=== PATIENT | female | born 1965 | race Hispanic/Latino ===

== ENCOUNTER 2023-08-14 17:25 | Inpatient (IN) | payer BC ==
[2023-08-14] MEDS ORDERED: fentaNYL 50 mcg/mL 1 mL Vial ONE (18:10)
[2023-08-14 19:24] LABS: Hemoglobin 10.3 g/dL (12.0-16.0); Mean Corpuscular HGB CONC 30.3 g/dL (32.0-36.0); Mean Corpuscular Hemoglobin 29.4 pg (27.0-31.0); Mean Corpuscular Volume 97.1 fL (78.0-98.0); Mean Platelet Volume 10.9 fL (7.4-10.4); Platelet Count 120 10x3/uL (130-400)
[2023-08-14 19:26] LABS: INR-International Normal Ratio 1.5; PTT 34.2 sec (22.9-36.1); Prothrombin Time 18.3 sec (12.0-14.7)
[2023-08-14 19:37] LABS: Band 12 % (5-11); Burr Cells SLIGHT = 2-5 cells HPF (0-1); Hypochromia SLIGHT = 6-15 cells HPF (0-5); Large Platelets 8.7 % (0-5); Lymphocytes 22 % (21-51); Macrocytosis SLIGHT = 6-15 cells HPF (0-5); Metamyelocyte 1 % (0-0); Monocytes 18 % (0-10); Myelocyte 2 % (0-0); Neutrophil 45 % (42-75); Nucleated RBC (Manual Ct) 2 % (0); Platelet Adequacy Comment Platelets Decreased; Poikilocytosis SLIGHT = 6-15 cells HPF (0-5); Polychromasia SLIGHT = 2-3 cells HPF (0-2)
[2023-08-14 19:50] LABS: Critical Call Chem Troponin I NUR.RO @1949; Troponin I 0.285 ng/mL (< 0.028)
[2023-08-14] MEDS ORDERED: Acetaminophen 500 MG TAB ONE (19:58)
[2023-08-14 19:59] LABS: ALT (SGPT) 21 U/L (8-55); AST (SGOT) 42 U/L (5-34); Albumin 2.5 g/dL (3.5-5.0); Alkaline Phosphatase 151 U/L (40-110); Anion Gap 25 mmol/L (10-20); BUN (Urea Nitrogen) 47 mg/dL (9.8-20.1); Bilirubin, Total 0.3 mg/dL (0.2-1.2); Calc. Creatinine Clearance 0 mL/min (70-130); Calcium 8.1 mg/dL (7.8-10.44); Carbon Dioxide 12 mmol/L (22-29); Chloride 107 mmol/L (98-107); Estimated GFR 11; Glucose 254 mg/dL (70-105); Potassium 4.5 mmol/L (3.5-5.1); Protein, Total 6.5 g/dL (6.0-8.3); Sodium 139 mmol/L (136-145)
[2023-08-14] MEDS ORDERED: Ondansetron ODT 4 MG TAB PO PRN (20:16)
[2023-08-14] MEDS ORDERED: Dextrose 50% Abboject 50 ML SYRINGE SLOW IVP PRN (20:16)
[2023-08-14] MEDS ORDERED: Glucagon 1 MG/ML KIT IM PRN (20:16)
[2023-08-14] MEDS ORDERED: Dextrose 5% in Water 1,000 ML IV PRN (20:16)
[2023-08-14] MEDS: NOREPINEPHRINE 8 MG/250 ML-D5W 250 ML IVPB PRN (22:04)
[2023-08-14] MEDS: Sodium Bicarbonate 150 mEq in Dextrose 5% IV SCH (22:16)
[2023-08-14] MEDS: Heparin 5,000 UNITS/ML VIAL SC SCH (22:19)
[2023-08-14] MEDS: Hydrocortisone Sod Succ/PF 100 mg/2 ml Vial IVP SCH (22:49)
[2023-08-14] MEDS: Sodium Bicarb 50 MEQ/50 ML Abboject 8.4% SYRINGE IVP SCH (22:49)
[2023-08-14] MEDS: Albumin 25% 25 GM (100 mL) BOT IVPB SCH (22:59)
[2023-08-14 23:06] VITALS: BMI 32.9
[2023-08-15 00:57] LABS: Troponin I 0.852 ng/mL (< 0.028)
[2023-08-15] MEDS: Hydrocortisone Sod Succ/PF 100 mg/2 ml Vial IVP SCH (01:08)
[2023-08-15] MEDS: Vasopressin 20 UNITS in Sodium Chloride 0.9% 50 ML IV SCH (01:09)
[2023-08-15] MEDS: Electrolyte Replacement Protocol 1 EACH IVPB ONE (01:12)
[2023-08-15] MEDS: fentaNYL 50 mcg/mL 1 mL Vial SLOW IVP SCH ×2 (02:00→08:20)
[2023-08-15] MEDS: Meropenem 1 GM in Sodium Chloride 0.9% 100 ML IVPB SCH (02:09)
[2023-08-15] MEDS: HumaLOG 300 UNITS/3 ML VIAL SC PRN (02:29)
[2023-08-15 03:29] LABS: Critical Call Chem Troponin I ICU.UKA@0329
[2023-08-15] MEDS ORDERED: Dextrose 5% in Water 1,000 ML IV PRN (04:30)
[2023-08-15] MEDS ORDERED: Glucagon 1 MG/ML KIT IM PRN (04:30)
[2023-08-15] MEDS: Insulin Glargine 30 UNITS/0.3 ML VIAL SC SCH (04:35)
[2023-08-15 04:36] LABS: Hematocrit 30.7 % (36.0-47.0); Hemoglobin 9.6 g/dL (12.0-16.0); Mean Corpuscular HGB CONC 31.3 g/dL (32.0-36.0); Mean Corpuscular Hemoglobin 29.8 pg (27.0-31.0); Mean Corpuscular Volume 95.3 fL (78.0-98.0); Platelet Count 88 10x3/uL (130-400); RBC Distribution Width 17.2 % (11.5-14.5); Red Blood Cell (RBC) Count 3.22 mill/uL (4.20-5.40)
[2023-08-15 05:01] LABS: Band 21 % (5-11); Large Platelets 1.8 % (0-5); Metamyelocyte 4 % (0-0); Monocytes 6 % (0-10); Neutrophil 69 % (42-75); Platelet Adequacy Comment Platelets Decreased; RBC Morphology Within Normal Limits
[2023-08-15 05:11] LABS: ALT (SGPT) 52 U/L (8-55); AST (SGOT) 83 U/L (5-34); Albumin 2.6 g/dL (3.5-5.0); Alkaline Phosphatase 89 U/L (40-110); Anion Gap 27 mmol/L (10-20); BUN (Urea Nitrogen) 50 mg/dL (9.8-20.1); Bilirubin, Total 0.7 mg/dL (0.2-1.2); Calc. Creatinine Clearance 16 mL/min (70-130); Calcium 7.8 mg/dL (7.8-10.44); Carbon Dioxide 17 mmol/L (22-29); Chloride 101 mmol/L (98-107); Estimated GFR 11; Globulin 3.3 g/dL (2.4-3.5); Glucose 415 mg/dL (70-105); Potassium 3.8 mmol/L (3.5-5.1); Protein, Total 5.9 g/dL (6.0-8.3); Sodium 141 mmol/L (136-145)
[2023-08-15] MEDS: Ondansetron PF 4 MG/2 ML Vial IVP PRN (05:49)
[2023-08-15] MEDS ORDERED: Meropenem 1 GM in Sodium Chloride 0.9% 100 ML IVPB SCH (06:00)
[2023-08-15] MEDS: Sodium Bicarb 50 mEq/50 ML VIAL IVP SCH (06:06)
[2023-08-15] MEDS: Sodium Chloride 0.9% 500 ML IV SCH (06:07)
[2023-08-15] MEDS: Sodium Chloride 0.9% 1,000 ML IV SCH (08:19)
[2023-08-15] MEDS: Pantoprazole 40 MG VIAL IVP SCH (08:59)
[2023-08-15] MEDS: Insulin Reg, Human 100 UNITS in Sodium Chloride 0.9% 100 ML IVPB SCH (09:57)
[2023-08-15] MEDS: Meropenem 500 MG in Sodium Chloride 0.9% 100 ML IVPB SCH (09:57)
[2023-08-15] MEDS: Promethazine HCl 6.25 MG in Sodium Chloride 0.9% 50 ML IVPB SCH (12:04)
[2023-08-15 12:47] LABS: Troponin I 9.243 ng/mL (< 0.028)
[2023-08-15 13:04] LABS: Campy jejuni + coli by PCR Negative (Negative); STEC Shiga Toxin 1+2 Negative (Negative); Salmonella spp. by PCR Negative (Negative); Shigella spp + EIEC by PCR Negative (Negative)
[2023-08-15] MEDS: fentaNYL 50 mcg/mL 1 mL Vial SLOW IVP PRN (15:00)
[2023-08-15 15:31] LABS: Troponin I 10.308 ng/mL (< 0.028)
[2023-08-15 16:05] LABS: Potassium 3.6 mmol/L (3.5-5.1)
[2023-08-15] MEDS ORDERED: SUCCINYLCHOLINE/SOD CL,ISO/PF 200 MG/10 ML SYRINGE FS ONE (17:59)
[2023-08-15] MEDS ORDERED: Etomidate 40 MG (20 mL) VIAL ONE (17:59)
[2023-08-15] MEDS: SUCCINYLCHOLINE/SOD CL,ISO/PF 200 MG/10 ML SYRINGE FS SCH (18:00)
[2023-08-15] MEDS: Propofol 1,000 MG/100 ML VIAL IV PRN (18:00)
[2023-08-15] MEDS ORDERED: Ventilator Sedation Protocol 1 EACH FS SCH (18:15)
[2023-08-15] MEDS: Fentanyl CADD 100 ML IV SCH (18:30)
[2023-08-15] MEDS ORDERED: Propofol BOLUS 1,000 MG/100 ML VIAL IV PRN (18:30)
[2023-08-15] MEDS ORDERED: DISCONTINUE PREVIOUS NARCOTIC PAIN MEDICATIONS AND BENZODIAZEPINES FS SCH (18:30)
[2023-08-15] MEDS ORDERED: Morphine 2 MG/ML VIAL SLOW IVP PRN (18:30)
[2023-08-15] MEDS ORDERED: Fentanyl BOLUS 250 ML IVPB PRN (18:30)
[2023-08-15 18:49] LABS: Actual Bicarbonate (HCO3a) 20.8 mEq/L (22-28); Base Excess (BEa) -1.4 mEq/L (-2.0 to +3.0); CO2 Tension 26.1 mmHg (35.0-45.0); Calcium, Ionized (arterial) 0.81 mmol/L (1.12-1.30); Carboxyhemoglobin (COHb) 0.4 gm% (0.0-3.0); Hematocrit-ABG 26 % (36.0-47.0); Hemoglobin (Hb) 8.7 g/dL (12.0-16.0); O2 Tension (PaO2), arterial 76.4 mmHg (80.0-100.0); Potassium - ABG Lab 4.07 mmol/L (3.70-5.30); pH, Arterial 7.519 (7.35-7.45)
[2023-08-15 18:49] LABS: Troponin I 10.467 ng/mL (< 0.028)
[2023-08-15 18:51] LABS: ALV-art Gradient 176.175 mmHg (0-20); Puncture Site Arterial Line
[2023-08-15] MEDS: Etomidate 40 MG (20 mL) VIAL IVP SCH (19:12)
[2023-08-15] MEDS: Propofol 1,000 MG/100 ML VIAL IV ONE (19:14)
[2023-08-15] MEDS: Fentanyl CADD 100 ML ONE (19:14)
[2023-08-15 19:20] LABS: Lactic Acid 8.6 mmol/L (0.5-2.2)
[2023-08-15] MEDS ORDERED: cefTRIAXone\\ROCEPHIN 2 GM in Sodium Chloride 0.9% 100 ML IVPB SCH (21:00)
[2023-08-15 22:24] LABS: Critical Call Chem Troponin I RESULT DECREASING; Troponin I 10.462 ng/mL (< 0.028)
[2023-08-15 23:42] LABS: ALT (SGPT) 456 U/L (8-55); AST (SGOT) 632 U/L (5-34); Albumin 3.2 g/dL (3.5-5.0); Alkaline Phosphatase 70 U/L (40-110); Anion Gap 32 mmol/L (10-20); BUN (Urea Nitrogen) 58 mg/dL (9.8-20.1); Bilirubin, Total 1.7 mg/dL (0.2-1.2); Calc. Creatinine Clearance 17 mL/min (70-130); Calcium 7.4 mg/dL (7.8-10.44); Carbon Dioxide 13 mmol/L (22-29); Chloride 105 mmol/L (98-107); Estimated GFR 11; Globulin 2.7 g/dL (2.4-3.5); Glucose 103 mg/dL (70-105); Potassium 4.4 mmol/L (3.5-5.1); Protein, Total 5.9 g/dL (6.0-8.3); Sodium 146 mmol/L (136-145)
[2023-08-16 00:42] LABS: Hematocrit 26.5 % (36.0-47.0); Hemoglobin 8.5 g/dL (12.0-16.0); Mean Corpuscular HGB CONC 32.1 g/dL (32.0-36.0); Mean Corpuscular Hemoglobin 30.5 pg (27.0-31.0); Mean Platelet Volume 11.3 fL (7.4-10.4); Platelet Count 39 10x3/uL (130-400); RBC Distribution Width 17.8 % (11.5-14.5); Red Blood Cell (RBC) Count 2.79 mill/uL (4.20-5.40)
[2023-08-16] MEDS: Sodium Bicarb 50 mEq/50 ML VIAL IVP SCH (00:52)
[2023-08-16] MEDS: Calcium Chloride 13.6 MEQ in Sodium Chloride 0.9% 100 ML IVPB SCH (00:52)
[2023-08-16] MEDS: Sodium Bicarbonate 150 MEQ in Dextrose 5% in Water 1,000 ML IV SCH (00:53)
[2023-08-16 01:03] LABS: Band 14 % (5-11); Burr Cells SLIGHT = 2-5 cells HPF (0-1); Lymphocytes 4 % (21-51); Monocytes 3 % (0-10); Neutrophil 79 % (42-75); Nucleated RBC (Manual Ct) 1 % (0); Platelet Adequacy Comment Platelets Decreased; Smudge Cells 66.3 %
[2023-08-16 04:16] LABS: Hematocrit 26.1 % (36.0-47.0); Hemoglobin 8.7 g/dL (12.0-16.0); Mean Corpuscular HGB CONC 33.3 g/dL (32.0-36.0); Mean Corpuscular Volume 92.9 fL (78.0-98.0); Platelet Count 33 10x3/uL (130-400); RBC Distribution Width 17.5 % (11.5-14.5); Red Blood Cell (RBC) Count 2.81 mill/uL (4.20-5.40)
[2023-08-16 04:34] LABS: Lactic Acid 12.1 mmol/L (0.5-2.2)
[2023-08-16 05:18] LABS: Band 14 % (5-11); Burr Cells MODERATE= 6-15 cells HPF (0-1); Large Platelets 1.9 % (0-5); Lymphocytes 5 % (21-51); Metamyelocyte 1 % (0-0); Neutrophil 80 % (42-75); Nucleated RBC (Manual Ct) 2 % (0); Platelet Adequacy Comment Platelets Decreased; Smudge Cells 107.6 %
[2023-08-16 06:06] LABS: ALT (SGPT) 1038 U/L (8-55); AST (SGOT) 1917 U/L (5-34); Alkaline Phosphatase 89 U/L (40-110); Anion Gap 32 mmol/L (10-20); BUN (Urea Nitrogen) 60 mg/dL (9.8-20.1); Bilirubin, Total 1.9 mg/dL (0.2-1.2); Calc. Creatinine Clearance 17 mL/min (70-130); Carbon Dioxide 17 mmol/L (22-29); Chloride 102 mmol/L (98-107); Estimated GFR 11; Globulin 2.6 g/dL (2.4-3.5); Glucose 171 mg/dL (70-105); Protein, Total 5.6 g/dL (6.0-8.3); Sodium 147 mmol/L (136-145)
[2023-08-16 07:19] LABS: Actual Bicarbonate (HCO3a) 20.3 mEq/L (22-28); Base Excess (BEa) -1.7 mEq/L (-2.0 to +3.0); CO2 Tension 25.3 mmHg (35.0-45.0); Calcium, Ionized (arterial) 0.87 mmol/L (1.12-1.30); Carboxyhemoglobin (COHb) 0.3 gm% (0.0-3.0); Hematocrit-ABG 27 % (36.0-47.0); Hemoglobin (Hb) 9.2 g/dL (12.0-16.0); O2 Tension (PaO2), arterial 84.2 mmHg (80.0-100.0); Potassium - ABG Lab 4.99 mmol/L (3.70-5.30); pH, Arterial 7.522 (7.35-7.45)
[2023-08-16 07:59] LABS: ALV-art Gradient 169.375 mmHg (0-20); Puncture Site Arterial Line
[2023-08-16] MEDS: Sodium Bicarbonate 100 MEQ in Dextrose 5% in Water 1,000 ML IV SCH (08:58)
[2023-08-16 09:32] LABS: Prothrombin Time 23.1 sec (12.0-14.7)
[2023-08-16 09:42] LABS: D-Dimer Test 8.42 mcg/mL (0.27-0.43)
[2023-08-16] MEDS: HumaLOG 300 UNITS/3 ML VIAL SC PRN (20:38)
[2023-08-16 20:56] LABS: Anion Gap 25 mmol/L (10-20); BUN (Urea Nitrogen) 68 mg/dL (9.8-20.1); Calc. Creatinine Clearance 17 mL/min (70-130); Calcium 7.4 mg/dL (7.8-10.44); Carbon Dioxide 27 mmol/L (22-29); Chloride 98 mmol/L (98-107); Estimated GFR 11; Glucose 297 mg/dL (70-105); Potassium 3.7 mmol/L (3.5-5.1); Sodium 146 mmol/L (136-145)
[2023-08-17 06:20] LABS: Platelet Count 27 10x3/uL (130-400)
[2023-08-17 06:21] LABS: Hematocrit 28.6 % (36.0-47.0); Hemoglobin 9.3 g/dL (12.0-16.0); Mean Corpuscular HGB CONC 32.5 g/dL (32.0-36.0); Mean Corpuscular Hemoglobin 30.4 pg (27.0-31.0); Mean Corpuscular Volume 93.5 fL (78.0-98.0); Mean Platelet Volume 13.7 fL (7.4-10.4); Platelet Count 29 10x3/uL (130-400); RBC Distribution Width 17.2 % (11.5-14.5); Red Blood Cell (RBC) Count 3.06 mill/uL (4.20-5.40)
[2023-08-17 06:39] LABS: INR-International Normal Ratio 1.5; Prothrombin Time 18.5 sec (12.0-14.7)
[2023-08-17 06:40] LABS: Fibrinogen 680 mg/dL (253-463); Lactic Acid 3.8 mmol/L (0.5-2.2); PTT 29.7 sec (22.9-36.1)
[2023-08-17 06:50] LABS: D-Dimer Test 7.12 mcg/mL (0.27-0.43)
[2023-08-17 06:59] LABS: ALT (SGPT) 858 U/L (8-55); AST (SGOT) 594 U/L (5-34); Albumin 2.4 g/dL (3.5-5.0); Alkaline Phosphatase 158 U/L (40-110); Anion Gap 21 mmol/L (10-20); BUN (Urea Nitrogen) 75 mg/dL (9.8-20.1); Calc. Creatinine Clearance 18 mL/min (70-130); Calcium 7.2 mg/dL (7.8-10.44); Carbon Dioxide 28 mmol/L (22-29); Chloride 99 mmol/L (98-107); Estimated GFR 12; Glucose 376 mg/dL (70-105); Potassium 3.3 mmol/L (3.5-5.1); Protein, Total 5.4 g/dL (6.0-8.3); Sodium 145 mmol/L (136-145)
[2023-08-17 07:02] LABS: Critical Call Chem Troponin I down@0700
[2023-08-17 07:16] LABS: Actual Bicarbonate (HCO3a) 28.1 mEq/L (22-28); Base Excess (BEa) 5.6 mEq/L (-2.0 to +3.0); CO2 Tension 33.2 mmHg (35.0-45.0); Calcium, Ionized (arterial) 0.88 mmol/L (1.12-1.30); Carboxyhemoglobin (COHb) 0.2 gm% (0.0-3.0); Hematocrit-ABG 29 % (36.0-47.0); O2 Tension (PaO2), arterial 67.9 mmHg (80.0-100.0); Potassium - ABG Lab 3.22 mmol/L (3.70-5.30); pH, Arterial 7.546 (7.35-7.45)
[2023-08-17 07:31] LABS: Puncture Site Arterial Line
[2023-08-17 07:49] LABS: Anisocytosis MARKED = >30 cells HPF (0-5); Band 10 % (5-11); Burr Cells MODERATE= 6-15 cells HPF (0-1); Large Platelets 0.9 % (0-5); Lymphocytes 2 % (21-51); Macrocytosis MODERATE=16-30 cells HPF (0-5); Metamyelocyte 2 % (0-0); Monocytes 7 % (0-10); Neutrophil 78 % (42-75); Nucleated RBC (Manual Ct) 2 % (0); Ovalocytes SLIGHT = 2-5 cells HPF (0-1); Platelet Adequacy Comment Significant Decrease; Polychromasia SLIGHT = 2-3 cells HPF (0-2); Target Cells SLIGHT = 2-5 cells HPF (0-1)
[2023-08-17] MEDS ORDERED: Insulin Glargine 30 UNITS/0.3 ML VIAL SC SCH (08:30)
[2023-08-17] MEDS: Sodium Chloride 0.45% 1,000 ML IV SCH ×2 (08:34→19:00)
[2023-08-17] MEDS: Potassium Chloride 20 MEQ in Premix 1 BAG IVPB SCH (08:34)
[2023-08-17] MEDS: Insulin NPH Human Isophane 100 UNITS/ML (10 ML VIAL) SC SCH ×2 (08:35→21:31)
[2023-08-17] MEDS ORDERED: Lactated Ringer's 1,000 ML IV SCH (09:00)
[2023-08-17 16:11] LABS: Lactic Acid 3.2 mmol/L (0.5-2.2)
[2023-08-17 22:16] LABS: Lactic Acid 2.3 mmol/L (0.5-2.2)
[2023-08-18 04:23] LABS: Hematocrit 31.2 % (36.0-47.0); Hemoglobin 10.1 g/dL (12.0-16.0); Mean Corpuscular HGB CONC 32.4 g/dL (32.0-36.0); Mean Corpuscular Hemoglobin 30.1 pg (27.0-31.0); Mean Corpuscular Volume 93.1 fL (78.0-98.0); Platelet Count 24 10x3/uL (130-400); Red Blood Cell (RBC) Count 3.35 mill/uL (4.20-5.40)
[2023-08-18 04:25] LABS: Lactic Acid 2.2 mmol/L (0.5-2.2)
[2023-08-18 04:29] LABS: ALT (SGPT) 696 U/L (8-55); AST (SGOT) 330 U/L (5-34); Albumin 2.2 g/dL (3.5-5.0); Alkaline Phosphatase 196 U/L (40-110); Anion Gap 20 mmol/L (10-20); BUN (Urea Nitrogen) 87 mg/dL (9.8-20.1); Bilirubin, Total 1.6 mg/dL (0.2-1.2); Calc. Creatinine Clearance 21 mL/min (70-130); Calcium 7.4 mg/dL (7.8-10.44); Carbon Dioxide 27 mmol/L (22-29); Chloride 103 mmol/L (98-107); Estimated GFR 14; Globulin 3.2 g/dL (2.4-3.5); Glucose 230 mg/dL (70-105); Potassium 3.4 mmol/L (3.5-5.1); Protein, Total 5.4 g/dL (6.0-8.3); Sodium 147 mmol/L (136-145)
[2023-08-18 05:19] LABS: Band 8 % (5-11); Large Platelets 4.9 % (0-5); Lymphocytes 2 % (21-51); Monocytes 3 % (0-10); Neutrophil 87 % (42-75); Nucleated RBC (Manual Ct) 2 % (0); Platelet Adequacy Comment Significant Decrease; RBC Morphology Within Normal Limits; Smudge Cells 7.8 %
[2023-08-18] MEDS: Insulin NPH Human Isophane 100 UNITS/ML (10 ML VIAL) SC SCH (08:36)
[2023-08-18] MEDS: Lorazepam 2 MG/ML VIAL SLOW IVP PRN (11:07)
[2023-08-18] MEDS: Sodium Chloride 0.45% 1,000 ML IV SCH (12:34)
[2023-08-18 17:10] LABS: Hematocrit 30.4 % (36.0-47.0); Hemoglobin 9.9 g/dL (12.0-16.0); Mean Corpuscular HGB CONC 32.6 g/dL (32.0-36.0); Mean Corpuscular Hemoglobin 29.6 pg (27.0-31.0); Platelet Count 26 10x3/uL (130-400); RBC Distribution Width 16.8 % (11.5-14.5); Red Blood Cell (RBC) Count 3.34 mill/uL (4.20-5.40)
[2023-08-18 17:39] LABS: Anisocytosis SLIGHT = 6-15 cells HPF (0-5); Band 22 % (5-11); Dohle Bodies SLIGHT; Hypochromia SLIGHT = 6-15 cells HPF (0-5); Lymphocytes 3 % (21-51); Monocytes 5 % (0-10); Myelocyte 1 % (0-0); Neutrophil 70 % (42-75); Nucleated RBC (Manual Ct) 3 % (0); Platelet Adequacy Comment Platelets Decreased; Polychromasia SLIGHT = 2-3 cells HPF (0-2); Toxic Granulation SLIGHT; Vacuoles SLIGHT
[2023-08-18] MEDS: Scopolamine 1 mg/72 hour Patch TD SCH (22:03)
[2023-08-19 05:26] LABS: Hemoglobin 10.2 g/dL (12.0-16.0); Mean Corpuscular HGB CONC 32.9 g/dL (32.0-36.0); Mean Corpuscular Hemoglobin 29.7 pg (27.0-31.0); Mean Corpuscular Volume 90.1 fL (78.0-98.0); Platelet Count 30 10x3/uL (130-400); RBC Distribution Width 16.9 % (11.5-14.5); Red Blood Cell (RBC) Count 3.44 mill/uL (4.20-5.40)
[2023-08-19 05:29] LABS: Lactic Acid 1.5 mmol/L (0.5-2.2)
[2023-08-19 06:03] LABS: Band 4 % (5-11); Large Platelets 2.9 % (0-5); Lymphocytes 4 % (21-51); Monocytes 3 % (0-10); Neutrophil 89 % (42-75); Nucleated RBC (Manual Ct) 2 % (0); Platelet Adequacy Comment Significant Decrease; Smudge Cells 8.8 %; Target Cells SLIGHT = 2-5 cells HPF (0-1)
[2023-08-19 06:34] LABS: ALT (SGPT) 528 U/L (8-55); AST (SGOT) 315 U/L (5-34); Albumin 1.9 g/dL (3.5-5.0); Alkaline Phosphatase 177 U/L (40-110); Anion Gap 16 mmol/L (10-20); BUN (Urea Nitrogen) 98 mg/dL (9.8-20.1); Bilirubin, Total 1.4 mg/dL (0.2-1.2); Calc. Creatinine Clearance 25 mL/min (70-130); Calcium 6.8 mg/dL (7.8-10.44); Carbon Dioxide 31 mmol/L (22-29); Chloride 105 mmol/L (98-107); Estimated GFR 17; Globulin 2.7 g/dL (2.4-3.5); Glucose 124 mg/dL (70-105); Potassium 2.8 mmol/L (3.5-5.1); Protein, Total 4.6 g/dL (6.0-8.3); Sodium 149 mmol/L (136-145)
[2023-08-19] MEDS: GLYCOPYRROLATE/PF 0.2 MG/ML VIAL SLOW IVP SCH (06:48)
[2023-08-19] MEDS: Albumin 25% 25 GM (100 mL) BOT IVPB SCH (06:48)
[2023-08-19] MEDS: Potassium Chloride 20 MEQ in Premix 1 BAG IVPB SCH (07:51)
[2023-08-19] MEDS: Potassium Chloride 40 MEQ in Dextrose 5% in Water 1,000 ML IV SCH (08:07)
[2023-08-19] MEDS: methylPREDNISolone Sod Succ 40 MG VIAL IVP SCH (08:47)
[2023-08-19] MEDS: Potassium Chloride 40 MEQ in Premix 1 BAG IVPB SCH (08:59)
[2023-08-19] MEDS ORDERED: cefTRIAXone\\ROCEPHIN 1 GM in Sodium Chloride 0.9% 100 ML IVPB SCH (09:30)
[2023-08-19] MEDS: cefTRIAXone\\ROCEPHIN 2 GM in Sodium Chloride 0.9% 100 ML IVPB SCH (10:21)
[2023-08-19] MEDS: Insulin Regular 300 UNITS/3 ML VIAL SC PRN (12:03)
[2023-08-19] MEDS: Insulin Regular 300 UNITS/3 ML VIAL SC SCH (16:06)
[2023-08-19 17:18] LABS: Anion Gap 14 mmol/L (10-20); BUN (Urea Nitrogen) 103 mg/dL (9.8-20.1); Calc. Creatinine Clearance 26 mL/min (70-130); Calcium 7.2 mg/dL (7.8-10.44); Carbon Dioxide 31 mmol/L (22-29); Chloride 106 mmol/L (98-107); Estimated GFR 17; Glucose 318 mg/dL (70-105); Sodium 147 mmol/L (136-145)
[2023-08-19] MEDS: Lactated Ringer's 1,000 ML IV SCH (18:05)
[2023-08-19] MEDS: Dextrose 5% in Water 1,000 ML IV SCH (18:54)
[2023-08-19] MEDS: Insulin Glargine 30 UNITS/0.3 ML VIAL SC SCH (20:40)
[2023-08-20 04:48] LABS: Lactic Acid 2.2 mmol/L (0.5-2.2)
[2023-08-20 05:02] LABS: Hematocrit 29.3 % (36.0-47.0); Hemoglobin 9.6 g/dL (12.0-16.0); Mean Corpuscular HGB CONC 32.8 g/dL (32.0-36.0); Mean Corpuscular Volume 91.6 fL (78.0-98.0); Platelet Count 30 10x3/uL (130-400); RBC Distribution Width 17.2 % (11.5-14.5)
[2023-08-20 05:03] LABS: ALT (SGPT) 382 U/L (8-55); AST (SGOT) 174 U/L (5-34); Albumin 2.2 g/dL (3.5-5.0); Alkaline Phosphatase 162 U/L (40-110); Anion Gap 14 mmol/L (10-20); BUN (Urea Nitrogen) 101 mg/dL (9.8-20.1); Bilirubin, Total 1.5 mg/dL (0.2-1.2); Calc. Creatinine Clearance 31 mL/min (70-130); Calcium 7.2 mg/dL (7.8-10.44); Carbon Dioxide 27 mmol/L (22-29); Chloride 106 mmol/L (98-107); Estimated GFR 21; Globulin 2.4 g/dL (2.4-3.5); Glucose 285 mg/dL (70-105); Potassium 3.7 mmol/L (3.5-5.1); Protein, Total 4.6 g/dL (6.0-8.3); Sodium 143 mmol/L (136-145)
[2023-08-20 05:37] LABS: Band 6 % (5-11); Lymphocytes 4 % (21-51); Monocytes 1 % (0-10); Neutrophil 89 % (42-75); Platelet Adequacy Comment Significant Decrease; Polychromasia SLIGHT = 2-3 cells HPF (0-2); Schistocytes SLIGHT = 2-5 cells HPF (0-1); Toxic Granulation SLIGHT
[2023-08-20 07:47] LABS: Actual Bicarbonate (HCO3a) 24.2 mEq/L (22-28); Base Excess (BEa) 1.2 mEq/L (-2.0 to +3.0); CO2 Tension 32.9 mmHg (35.0-45.0); Calcium, Ionized (arterial) 1.02 mmol/L (1.12-1.30); Hematocrit-ABG 31 % (36.0-47.0); Hemoglobin (Hb) 10.7 g/dL (12.0-16.0); Potassium - ABG Lab 3.56 mmol/L (3.70-5.30); pH, Arterial 7.485 (7.35-7.45)
[2023-08-20 07:52] LABS: O2 Tension (PaO2), arterial 59.2 mmHg (80.0-100.0)
[2023-08-20 07:53] LABS: ALV-art Gradient 184.875 mmHg (0-20); Puncture Site LRA
[2023-08-20] MEDS: Insulin Glargine 30 UNITS/0.3 ML VIAL SC SCH (11:49)
[2023-08-20 12:13] LABS: Norovirus GI Negative (Negative); Norovirus GII Negative (Negative)
[2023-08-20] MEDS: 1/2 NS w/Potassium 20 mEq 1,000 ML IV SCH (18:50)
[2023-08-20 22:55] LABS: ALT (SGPT) 305 U/L (8-55); AST (SGOT) 100 U/L (5-34); Albumin 2.3 g/dL (3.5-5.0); Alkaline Phosphatase 198 U/L (40-110); Anion Gap 21 mmol/L (10-20); BUN (Urea Nitrogen) 99 mg/dL (9.8-20.1); Bilirubin, Total 1.4 mg/dL (0.2-1.2); Calc. Creatinine Clearance 32 mL/min (70-130); Calcium 7.8 mg/dL (7.8-10.44); Carbon Dioxide 21 mmol/L (22-29); Chloride 109 mmol/L (98-107); Estimated GFR 22; Globulin 2.6 g/dL (2.4-3.5); Glucose 206 mg/dL (70-105); Potassium 5.4 mmol/L (3.5-5.1); Protein, Total 4.9 g/dL (6.0-8.3); Sodium 146 mmol/L (136-145)
[2023-08-21 05:32] LABS: Hematocrit 30.3 % (36.0-47.0); Hemoglobin 10.1 g/dL (12.0-16.0); Mean Corpuscular HGB CONC 33.3 g/dL (32.0-36.0); Mean Corpuscular Hemoglobin 29.8 pg (27.0-31.0); Mean Corpuscular Volume 89.4 fL (78.0-98.0); Platelet Count 40 10x3/uL (130-400); RBC Distribution Width 17.7 % (11.5-14.5); Red Blood Cell (RBC) Count 3.39 mill/uL (4.20-5.40)
[2023-08-21 06:08] LABS: Band 2 % (5-11); Hypochromia MODERATE=16-30 cells HPF (0-5); Lymphocytes 4 % (21-51); Monocytes 1 % (0-10); Neutrophil 93 % (42-75); Platelet Adequacy Comment Significant Decrease; Polychromasia SLIGHT = 2-3 cells HPF (0-2)
[2023-08-21 06:13] LABS: ALT (SGPT) 278 U/L (8-55); AST (SGOT) 85 U/L (5-34); Albumin 2.4 g/dL (3.5-5.0); Alkaline Phosphatase 182 U/L (40-110); Anion Gap 16 mmol/L (10-20); BUN (Urea Nitrogen) 93 mg/dL (9.8-20.1); Bilirubin, Total 1.4 mg/dL (0.2-1.2); Calc. Creatinine Clearance 39 mL/min (70-130); Calcium 7.6 mg/dL (7.8-10.44); Carbon Dioxide 25 mmol/L (22-29); Chloride 106 mmol/L (98-107); Estimated GFR 26; Globulin 2.9 g/dL (2.4-3.5); Glucose 121 mg/dL (70-105); Lactic Acid 1.2 mmol/L (0.5-2.2); Potassium 4.3 mmol/L (3.5-5.1); Protein, Total 5.3 g/dL (6.0-8.3); Sodium 143 mmol/L (136-145)
[2023-08-21] MEDS: Furosemide 40 MG (4 mL) VIAL SLOW IVP SCH (17:16)
[2023-08-22 07:16] LABS: Lactic Acid 1.1 mmol/L (0.5-2.2)
[2023-08-22 07:21] LABS: ALT (SGPT) 185 U/L (8-55); AST (SGOT) 52 U/L (5-34); Albumin 2.3 g/dL (3.5-5.0); Alkaline Phosphatase 167 U/L (40-110); Anion Gap 13 mmol/L (10-20); BUN (Urea Nitrogen) 82 mg/dL (9.8-20.1); Bilirubin, Total 1.1 mg/dL (0.2-1.2); Calc. Creatinine Clearance 41 mL/min (70-130); Calcium 7.6 mg/dL (7.8-10.44); Carbon Dioxide 26 mmol/L (22-29); Chloride 106 mmol/L (98-107); Estimated GFR 28; Globulin 2.8 g/dL (2.4-3.5); Glucose 119 mg/dL (70-105); Protein, Total 5.1 g/dL (6.0-8.3); Sodium 141 mmol/L (136-145)
[2023-08-22 07:49] LABS: Hemoglobin 9.4 g/dL (12.0-16.0); Mean Corpuscular HGB CONC 32.4 g/dL (32.0-36.0); Mean Corpuscular Hemoglobin 30.1 pg (27.0-31.0); Mean Corpuscular Volume 92.9 fL (78.0-98.0); Platelet Count 55 10x3/uL (130-400); RBC Distribution Width 17.9 % (11.5-14.5); Red Blood Cell (RBC) Count 3.12 mill/uL (4.20-5.40)
[2023-08-22 08:26] LABS: Band 5 % (5-11); Eosinophils 2 % (0-10); Lymphocytes 3 % (21-51); Monocytes 1 % (0-10); Neutrophil 89 % (42-75); Platelet Adequacy Comment Significant Decrease; RBC Morphology Within Normal Limits
[2023-08-22] MEDS: Acetaminophen 325 MG TAB PO PRN (11:47)
[2023-08-22] MEDS: Insulin Glargine 30 UNITS/0.3 ML VIAL SC SCH (11:48)
[2023-08-23 06:47] LABS: Hematocrit 27.9 % (36.0-47.0); Hemoglobin 8.8 g/dL (12.0-16.0); Mean Corpuscular HGB CONC 31.5 g/dL (32.0-36.0); Mean Corpuscular Volume 95.2 fL (78.0-98.0); Platelet Count 78 10x3/uL (130-400); RBC Distribution Width 17.2 % (11.5-14.5); Red Blood Cell (RBC) Count 2.93 mill/uL (4.20-5.40)
[2023-08-23 07:01] LABS: ALT (SGPT) 130 U/L (8-55); AST (SGOT) 39 U/L (5-34); Albumin 2.1 g/dL (3.5-5.0); Alkaline Phosphatase 159 U/L (40-110); Anion Gap 13 mmol/L (10-20); BUN (Urea Nitrogen) 68 mg/dL (9.8-20.1); Bilirubin, Total 0.9 mg/dL (0.2-1.2); Calc. Creatinine Clearance 48 mL/min (70-130); Calcium 7.7 mg/dL (7.8-10.44); Carbon Dioxide 24 mmol/L (22-29); Chloride 106 mmol/L (98-107); Estimated GFR 35; Globulin 2.9 g/dL (2.4-3.5); Glucose 66 mg/dL (70-105); Potassium 4.4 mmol/L (3.5-5.1); Sodium 139 mmol/L (136-145)
[2023-08-23 07:10] LABS: Anisocytosis SLIGHT = 6-15 cells HPF (0-5); Band 6 % (5-11); Eosinophils 2 % (0-10); Hypochromia SLIGHT = 6-15 cells HPF (0-5); Lymphocytes 8 % (21-51); Metamyelocyte 1 % (0-0); Monocytes 2 % (0-10); Neutrophil 81 % (42-75); Platelet Adequacy Comment Platelets Decreased
[2023-08-24 06:53] LABS: #Basophils Less than 0.03 10x3/uL (0.0-0.2); %Basophils 0.1 % (0.0-1.0); %Eosinophils 1.5 % (0.0-10.0); %Lymphocytes 14.9 % (21.0-51.0); %Monocytes 6.6 % (0.0-10.0); %Neutrophils 75.8 % (42.0-75.0); Hematocrit 25.8 % (36.0-47.0); Hemoglobin 8.1 g/dL (12.0-16.0); Mean Corpuscular HGB CONC 31.4 g/dL (32.0-36.0); Mean Corpuscular Hemoglobin 30.1 pg (27.0-31.0); Mean Corpuscular Volume 95.9 fL (78.0-98.0); Platelet Count 125 10x3/uL (130-400); RBC Distribution Width 16.9 % (11.5-14.5); Red Blood Cell (RBC) Count 2.69 mill/uL (4.20-5.40)
[2023-08-24 07:23] LABS: ALT (SGPT) 91 U/L (8-55); AST (SGOT) 34 U/L (5-34); Albumin 2.1 g/dL (3.5-5.0); Alkaline Phosphatase 137 U/L (40-110); Anion Gap 11 mmol/L (10-20); BUN (Urea Nitrogen) 29 mg/dL (9.8-20.1); Bilirubin, Total 0.8 mg/dL (0.2-1.2); Calc. Creatinine Clearance 103 mL/min (70-130); Calcium 8.1 mg/dL (7.8-10.44); Carbon Dioxide 26 mmol/L (22-29); Chloride 109 mmol/L (98-107); Estimated GFR 91; Glucose 145 mg/dL (70-105); Potassium 4.8 mmol/L (3.5-5.1); Protein, Total 5.1 g/dL (6.0-8.3); Sodium 141 mmol/L (136-145)
[2023-08-24] MEDS ORDERED: Scopolamine 1 mg/72 hour Patch TD SCH (22:00)
[2023-08-25] MEDS ORDERED: guaiFENesin 200 MG TAB PO PRN (06:32)
[2023-08-25 08:00] LABS: #Basophils 0.03 10x3/uL (0.0-0.2); %Basophils 0.2 % (0.0-1.0); %Eosinophils 1.9 % (0.0-10.0); %Lymphocytes 17.8 % (21.0-51.0); %Monocytes 6.4 % (0.0-10.0); Hematocrit 25.2 % (36.0-47.0); Hemoglobin 7.9 g/dL (12.0-16.0); Mean Corpuscular HGB CONC 31.3 g/dL (32.0-36.0); Mean Corpuscular Hemoglobin 29.8 pg (27.0-31.0); Mean Corpuscular Volume 95.1 fL (78.0-98.0); Mean Platelet Volume 11.8 fL (7.4-10.4); Platelet Count 167 10x3/uL (130-400); RBC Distribution Width 16.3 % (11.5-14.5); Red Blood Cell (RBC) Count 2.65 mill/uL (4.20-5.40)
[2023-08-25 08:20] LABS: Potassium 4.6 mmol/L (3.5-5.1); Sodium 139 mmol/L (136-145)
[2023-08-25 08:21] LABS: ALT (SGPT) 77 U/L (8-55); AST (SGOT) 35 U/L (5-34); Albumin 2.2 g/dL (3.5-5.0); Alkaline Phosphatase 122 U/L (40-110); Anion Gap 10 mmol/L (10-20); BUN (Urea Nitrogen) 15 mg/dL (9.8-20.1); Bilirubin, Total 0.8 mg/dL (0.2-1.2); Calc. Creatinine Clearance 107 mL/min (70-130); Calcium 8.5 mg/dL (7.8-10.44); Carbon Dioxide 26 mmol/L (22-29); Chloride 108 mmol/L (98-107); Estimated GFR 97; Globulin 3.1 g/dL (2.4-3.5); Glucose 134 mg/dL (70-105); Protein, Total 5.3 g/dL (6.0-8.3)
[2023-08-25] MEDS: Enoxaparin 40 MG (0.4 mL) SYRINGE SC SCH (09:37)
[2023-08-25] MEDS: Insulin Glargine 30 UNITS/0.3 ML VIAL SC SCH (09:38)
[2023-08-25] MEDS ORDERED: Ibuprofen 600 MG TAB PO PRN (10:16)
[2023-08-25] MEDS: Acetaminophen 325 MG TAB PO SCH (11:12)
[2023-08-25 13:39] VITALS: BMI 34.2
[2023-08-26 05:55] LABS: #Basophils Less than 0.03 10x3/uL (0.0-0.2); %Basophils 0.1 % (0.0-1.0); %Eosinophils 2.6 % (0.0-10.0); %Lymphocytes 27.5 % (21.0-51.0); %Monocytes 7.4 % (0.0-10.0); Hematocrit 25.4 % (36.0-47.0); Hemoglobin 7.9 g/dL (12.0-16.0); Mean Corpuscular HGB CONC 31.1 g/dL (32.0-36.0); Mean Corpuscular Hemoglobin 30.3 pg (27.0-31.0); Mean Corpuscular Volume 97.3 fL (78.0-98.0); Mean Platelet Volume 11.5 fL (7.4-10.4); Platelet Count 216 10x3/uL (130-400); RBC Distribution Width 15.8 % (11.5-14.5); Red Blood Cell (RBC) Count 2.61 mill/uL (4.20-5.40)
[2023-08-26 06:11] LABS: ALT (SGPT) 76 U/L (8-55); AST (SGOT) 47 U/L (5-34); Albumin 2.2 g/dL (3.5-5.0); Alkaline Phosphatase 111 U/L (40-110); Anion Gap 10 mmol/L (10-20); BUN (Urea Nitrogen) 15 mg/dL (9.8-20.1); Bilirubin, Total 0.5 mg/dL (0.2-1.2); Calc. Creatinine Clearance 113 mL/min (70-130); Calcium 8.5 mg/dL (7.8-10.44); Carbon Dioxide 24 mmol/L (22-29); Chloride 108 mmol/L (98-107); Estimated GFR 101; Globulin 3.2 g/dL (2.4-3.5); Glucose 198 mg/dL (70-105); Potassium 4.3 mmol/L (3.5-5.1); Protein, Total 5.4 g/dL (6.0-8.3); Sodium 138 mmol/L (136-145)
[2023-08-26] MEDS: Insulin Glargine 30 UNITS/0.3 ML VIAL SC SCH (08:34)
[2023-08-26] MEDS: Lidocaine 2% Viscous 100 ML BOTTLE SSP PRN (18:41)
[2023-08-27 06:09] LABS: #Basophils 0.05 10x3/uL (0.0-0.2); %Basophils 0.5 % (0.0-1.0); %Eosinophils 2.3 % (0.0-10.0); %Lymphocytes 29.3 % (21.0-51.0); %Monocytes 7.6 % (0.0-10.0); %Neutrophils 59.9 % (42.0-75.0); Hematocrit 24.9 % (36.0-47.0); Mean Corpuscular HGB CONC 32.1 g/dL (32.0-36.0); Mean Corpuscular Hemoglobin 30.5 pg (27.0-31.0); Mean Platelet Volume 11.6 fL (7.4-10.4); Platelet Count 264 10x3/uL (130-400); RBC Distribution Width 15.7 % (11.5-14.5); Red Blood Cell (RBC) Count 2.62 mill/uL (4.20-5.40)
[2023-08-27 06:35] LABS: ALT (SGPT) 57 U/L (8-55); AST (SGOT) 33 U/L (5-34); Albumin 2.2 g/dL (3.5-5.0); Alkaline Phosphatase 98 U/L (40-110); Anion Gap 11 mmol/L (10-20); BUN (Urea Nitrogen) 11 mg/dL (9.8-20.1); Bilirubin, Total 0.4 mg/dL (0.2-1.2); Calc. Creatinine Clearance 110 mL/min (70-130); Calcium 8.7 mg/dL (7.8-10.44); Carbon Dioxide 24 mmol/L (22-29); Chloride 109 mmol/L (98-107); Estimated GFR 100; Globulin 3.4 g/dL (2.4-3.5); Glucose 107 mg/dL (70-105); Potassium 4.3 mmol/L (3.5-5.1); Protein, Total 5.6 g/dL (6.0-8.3); Sodium 140 mmol/L (136-145)
[2023-08-27] MEDS: Atorvastatin Calcium 10 MG TAB PO SCH (20:00)
[2023-08-28 07:07] LABS: #Basophils 0.07 10x3/uL (0.0-0.2); %Basophils 0.8 % (0.0-1.0); %Eosinophils 2.6 % (0.0-10.0); %Lymphocytes 35.6 % (21.0-51.0); %Monocytes 8.8 % (0.0-10.0); %Neutrophils 51.9 % (42.0-75.0); Mean Corpuscular HGB CONC 30.8 g/dL (32.0-36.0); Mean Corpuscular Hemoglobin 30.4 pg (27.0-31.0); Mean Corpuscular Volume 98.9 fL (78.0-98.0); Mean Platelet Volume 11.1 fL (7.4-10.4); Platelet Count 321 10x3/uL (130-400); RBC Distribution Width 15.7 % (11.5-14.5); Red Blood Cell (RBC) Count 2.63 mill/uL (4.20-5.40)
[2023-08-28 07:44] LABS: ALT (SGPT) 60 U/L (8-55); AST (SGOT) 48 U/L (5-34); Albumin 2.3 g/dL (3.5-5.0); Alkaline Phosphatase 104 U/L (40-110); Anion Gap 11 mmol/L (10-20); BUN (Urea Nitrogen) 10 mg/dL (9.8-20.1); Bilirubin, Total 0.4 mg/dL (0.2-1.2); Calc. Creatinine Clearance 105 mL/min (70-130); Calcium 8.7 mg/dL (7.8-10.44); Carbon Dioxide 25 mmol/L (22-29); Chloride 108 mmol/L (98-107); Estimated GFR 95; Globulin 3.5 g/dL (2.4-3.5); Glucose 105 mg/dL (70-105); Protein, Total 5.8 g/dL (6.0-8.3); Sodium 140 mmol/L (136-145)
[2023-08-28 17:17] VITALS: BP 107/62; TEMP 98.9
[2023-09-03] MEDS ORDERED: Ergocalciferol 1.25 MG(50,000 UNITS) CAP PO SCH (09:00)
== END 2023-08-28 16:37 | disposition home or self-care (01) | DRG 870 ==
LOC: ERS 17:25 → CCU 20:16 → T4-A 08-21 17:49
PROVIDERS: ADMIT Family Medicine; ATTEND Family Medicine
PROC: 3E033XZ Introduction of Vasopressor into Peripheral Vein, Percutaneous Approach (ICD-10-PCS; 2023-08-14)
PROC: 02HV33Z Insertion of Infusion Device into Superior Vena Cava, Percutaneous Approach (ICD-10-PCS; 2023-08-14)
PROC: B5181ZA Fluoroscopy of Superior Vena Cava using Low Osmolar Contrast, Guidance (ICD-10-PCS; 2023-08-14)
PROC: 3E04329 Introduction of Other Anti-infective into Central Vein, Percutaneous Approach (ICD-10-PCS; 2023-08-14)
PROC: 5A1955Z Respiratory Ventilation, Greater than 96 Consecutive Hours (ICD-10-PCS; principal; 2023-08-15)
PROC: 0BH18EZ Insertion of Endotracheal Airway into Trachea, Via Natural or Artificial Opening Endoscopic (ICD-10-PCS; 2023-08-15)
PROC: 03HC33Z Insertion of Infusion Device into Left Radial Artery, Percutaneous Approach (ICD-10-PCS; 2023-08-15)
PROC: 4A133R1 Monitoring of Arterial Saturation, Peripheral, Percutaneous Approach (ICD-10-PCS; 2023-08-15)
PROC: 3E03329 Introduction of Other Anti-infective into Peripheral Vein, Percutaneous Approach (ICD-10-PCS; 2023-08-15)
PROC: 30233J1 Transfusion of Nonautologous Serum Albumin into Peripheral Vein, Percutaneous Approach (ICD-10-PCS; 2023-08-15)
DX: A41.51 Sepsis due to Escherichia coli [E. coli] (principal); G93.41 Metabolic encephalopathy; I21.A1 Myocardial infarction type 2; J96.01 Acute respiratory failure with hypoxia; R65.21 Severe sepsis with septic shock; K72.00 Acute and subacute hepatic failure without coma; N17.9 Acute kidney failure, unspecified; E87.20 Acidosis, unspecified; N12 Tubulo-interstitial nephritis, not specified as acute or chronic; E78.5 Hyperlipidemia, unspecified; D69.6 Thrombocytopenia, unspecified; N18.9 Chronic kidney disease, unspecified; E11.22 Type 2 diabetes mellitus with diabetic chronic kidney disease; I12.9 Hypertensive chronic kidney disease with stage 1 through stage 4 chronic kidney disease, or unspecified chronic kidney disease; E78.00 Pure hypercholesterolemia, unspecified; E83.42 Hypomagnesemia; E88.09 Other disorders of plasma-protein metabolism, not elsewhere classified; E11.65 Type 2 diabetes mellitus with hyperglycemia
CPT/HCPCS: 36415; 36416; 36556; 36600; 51702; 71045; 74176; 76775; 80053; 82805; 83605; 83630; 83880; 84145; 84484; 85025; 85049; 85300; 85362; 85379; 85384; 85610; 85730; 87086; 87324; 87449; 87505; 87798; 93005; 93010; 93306; 94002; 94003; 94660; 96360; C9113; J0696; J1644; J1650; J1720; J1815; J1940; J2060; J2185; J2405; J2550; J2704; J2920; J3010; J3480; J3490; J7030; J7050; J7070; J7120; P9047